=== PATIENT | female | born 1985 | race Caucasian/White ===

== ENCOUNTER 2017-10-19 02:54 | Emergency (ER) | payer OTHER ==
[~2017-10-19] VITALS: Ht 152.4 cm; Wt 48.0 kg
[2017-10-19 03:42] LABS: MICROSCOPIC AUTO
[2017-10-19 03:43] LABS: BASOPHILS # (AUTO) 0.06 x10^3/uL (0-0.1); BASOPHILS % (AUTO) 0 % (0-1); EOSINOPHILS # (AUTO) 0.22 x10^3/uL (0-0.4); EOSINOPHILS % (AUTO) 2 % (1-7); LYMPHOCYTES # (AUTO) 3.58 x10^3/uL (1-3.4); LYMPHOCYTES % (AUTO) 25 % (22-44); MD NO; MEAN CORPUSCULAR HEMOGLOBIN 31.7 pg (27.0-34.8); MEAN CORPUSCULAR HGB CONC 33.9 g/dL (32.4-35.8); MEAN CORPUSCULAR VOLUME 93.3 fL (80-100); MEAN PLATELET VOLUME 7.7 fL (7.4-10.4); MONOCYTES # (AUTO) 0.92 x10^3/uL (0.2-0.8); MONOCYTES % (AUTO) 6 % (2-9); NEUTROPHILS # (AUTO) 9.68 x10^3/uL (1.8-6.8); NEUTROPHILS % (AUTO) 67 % (42-75); PLATELET COUNT 271 x10^3/uL (130-400); RED BLOOD COUNT 4.31 x10^6/uL (3.82-5.3); RED CELL DISTRIBUTION WIDTH 12.4 % (9.6-15.2)
[2017-10-19 03:47] LABS: CULTURE INDICATED? YES
[2017-10-19 03:56] LABS: ALBUMIN 3.8 g/dL (3.4-5.0); ANION GAP 8 mmol/L (5-15); CHLORIDE 107 mmol/L (98-107)
[2017-10-19] MEDS ORDERED: SODIUM CHLORIDE 0.9% 1,000ML IVBOLUS ONE (05:00)
[2017-10-19] MEDS ORDERED: SODIUM CHLORIDE FLUSH 10ML SYR IVF ONE (05:00)
[2017-10-19 05:39] VITALS: BP 123/75
[2017-10-19] MEDS ORDERED: OXYC-302 PO (21:49)
[2017-10-19] MEDS ORDERED: IBUP-1222 PO (21:51)
== END 2017-10-19 05:55 | disposition left against medical advice (07) ==
LOC: ED 05:49
DX: O99.281 Endocrine, nutritional and metabolic diseases complicating pregnancy, first trimester (principal); D72.829 Elevated white blood cell count, unspecified; O26.891 Other specified pregnancy related conditions, first trimester; R10.2 Pelvic and perineal pain; Z3A.00 Weeks of gestation of pregnancy not specified
CPT/HCPCS: 36415; 76830; 80048; 81001; 82040; 84702; 85025; 87086; 99285

== ENCOUNTER 2017-10-19 08:27 | Inpatient (IN) | payer OTHER ==
[~2017-10-19] VITALS: Ht 152.4 cm; Wt 47.0 kg
[2017-10-19 09:36] LABS: AMPHETAMINE SCREEN, URINE Negative (Negative); BARBITURATE SCREEN, URINE Negative (Negative); BENZODIAZEPINE SCREEN, URINE Negative (Negative); CANNABINOID SCREEN, URINE Positive (Negative); COCAINE SCREEN, URINE Negative (Negative); METHADONE SCREEN, URINE Negative (Negative); OPIATE SCREEN, URINE Negative (Negative)
[2017-10-19] MEDS ORDERED: D5%-0.45% NACL 1,000 ML IV ONE (09:59)
[2017-10-19] MEDS ORDERED: MORPHINE SULFATE 4 MG/ML, 1ML IVPush PRN (10:00)
[2017-10-19] MEDS ORDERED: ONDANSETRON 2MG/ML, 2ML IVPush PRN (10:00)
[2017-10-19 10:24] LABS: BASOPHILS # (AUTO) 0.05 x10^3/uL (0-0.1); BASOPHILS % (AUTO) 0 % (0-1); EOSINOPHILS # (AUTO) 0.16 x10^3/uL (0-0.4); EOSINOPHILS % (AUTO) 1 % (1-7); LYMPHOCYTES % (AUTO) 27 % (22-44); MD NO; MEAN CORPUSCULAR HEMOGLOBIN 31.4 pg (27.0-34.8); MEAN CORPUSCULAR HGB CONC 33.9 g/dL (32.4-35.8); MEAN CORPUSCULAR VOLUME 92.7 fL (80-100); MEAN PLATELET VOLUME 7.5 fL (7.4-10.4); MONOCYTES # (AUTO) 0.75 x10^3/uL (0.2-0.8); MONOCYTES % (AUTO) 5 % (2-9); NEUTROPHILS # (AUTO) 9.25 x10^3/uL (1.8-6.8); NEUTROPHILS % (AUTO) 67 % (42-75); PLATELET COUNT 262 x10^3/uL (130-400); RED BLOOD COUNT 4.23 x10^6/uL (3.82-5.3); RED CELL DISTRIBUTION WIDTH 12.7 % (9.6-15.2)
[2017-10-19 12:21] VITALS: BP 111/85
[2017-10-19 13:01] VITALS: BP 111/69
[2017-10-19] MEDS ORDERED: SILVER NITRATE STICK TP ONE (15:11)
[2017-10-19] MEDS ORDERED: BUPIVACAINE/PF-EPI 0.25% 1:200K ONE (15:11)
[2017-10-19] MEDS ORDERED: THROMBIN 5,000 UNIT VIAL TP ONE (15:11)
[2017-10-19] MEDS ORDERED: BALANCED SALT OPHTH IRRIG SOLN 18ML ONE (18:31)
[2017-10-19] MEDS ORDERED: MIDAZOLAM 1 MG/ML, 2ML ONE (18:35)
[2017-10-19] MEDS ORDERED: FENTANYL PF 100 MCG/2ML ONE ×2 (18:36→19:54)
[2017-10-19] MEDS ORDERED: LIDOCAINE GEL 2%, 5ML ONE (18:37)
[2017-10-19] MEDS ORDERED: HYDROmorphone 1 MG/ML, 1ML IV PRN (19:00)
[2017-10-19] MEDS ORDERED: MIDAZOLAM 1 MG/ML, 2ML IV PRN (19:00)
[2017-10-19] MEDS ORDERED: LABETALOL 5MG/ML, 20ML IV PRN (19:00)
[2017-10-19] MEDS ORDERED: MEPERIDINE/PF 25MG/0.5ML IVPush PRN (19:00)
[2017-10-19] MEDS ORDERED: METOCLOPRAMIDE 5 MG/ML, 2ML IV PRN (19:00)
[2017-10-19] MEDS ORDERED: ONDANSETRON 2MG/ML, 2ML IV PRN ×3 (19:00→22:00)
[2017-10-19] MEDS ORDERED: DIAZEPAM 5 MG/ML, 2ML IVPush PRN (19:00)
[2017-10-19] MEDS ORDERED: PROMETHAZINE 25 MG/ML, 1ML IV PRN (19:00)
[2017-10-19] MEDS ORDERED: SCOPOLAMINE PATCH, 1.5MG PATCH.TD72 TD PRN (19:00)
[2017-10-19] MEDS ORDERED: HALOPERIDOL 5 MG/ML IV PRN (19:00)
[2017-10-19] MEDS ORDERED: EPHEDRINE 50 MG/ML, 1ML IM PRN (19:00)
[2017-10-19] MEDS ORDERED: OXYcodone 5 MG/5 ML ORAL.SOL UDC PO PRN ×3 (19:00→22:00)
[2017-10-19] MEDS ORDERED: ALBUTEROL/IPRATROPIUM 2.5MG/0.5MG, 3 ML NPPB PRN (19:00)
[2017-10-19] MEDS ORDERED: BUPIVACAINE/PF-EPI 0.25% 1:200K INFIL ONE (19:16)
[2017-10-19] MEDS ORDERED: GLYCOPYRROLATE 0.2MG/1ML, 5ML ONE (19:36)
[2017-10-19] MEDS ORDERED: ONDANSETRON 2MG/ML, 2ML ONE (19:36)
[2017-10-19] MEDS ORDERED: SUCCINYLCHOLINE 20 MG/ML, 10ML ONE (19:36)
[2017-10-19] MEDS ORDERED: ROCURONIUM 10MG/ML,5ML ONE (19:36)
[2017-10-19] MEDS ORDERED: CEFAZOLIN 1,000 MG ONE (19:36)
[2017-10-19] MEDS ORDERED: PROPOFOL 10 MG/ML, 20ML ONE (19:36)
[2017-10-19] MEDS ORDERED: DEXAMETHASONE 4 MG/ML, 1ML ONE (19:36)
[2017-10-19] MEDS ORDERED: NEOSTIGMINE 1 MG/ML, 10ML ONE (19:36)
[2017-10-19] MEDS ORDERED: OXYcodone 5 MG/5 ML ORAL.SOL UDC ONE (19:54)
[2017-10-19] MEDS: FENTANYL PF 100 MCG/2ML IV PRN ×2 (19:57→20:12)
[2017-10-19] MEDS ORDERED: MEPERIDINE/PF 50 MG/ML ONE (20:28)
[2017-10-19] MEDS ORDERED: OXYC-302 PO (21:49)
[2017-10-19] MEDS ORDERED: IBUP-1222 PO (21:51)
[2017-10-19] MEDS ORDERED: KETOROLAC 30 MG/1 ML IV PRN ×2 (22:00)
[2017-10-19] MEDS ORDERED: PROMETHAZINE 25 MG SUPP PR ONE (22:00)
[2017-10-19] MEDS ORDERED: morphine SULFATE 10 MG/ML, 1ML IV PRN ×2 (22:00)
[2017-10-19] MEDS ORDERED: PROMETHAZINE 12.5 MG SUPP PR ONE ×2 (22:00)
[2017-10-19] MEDS ORDERED: PROMETHAZINE 25 MG/ML, 1ML IV ONE ×2 (22:00)
[2017-10-20 00:38] VITALS: BP 108/67
== END 2017-10-19 23:00 | disposition home or self-care (01) | DRG 777 ==
LOC: ED 09:08 → EDIP 09:59 → 4NOR 12:15
PROVIDERS: ADMIT Obstetrics & Gynecology; ATTEND Obstetrics & Gynecology
PROC: 0UT04ZZ Resection of Right Ovary, Percutaneous Endoscopic Approach (ICD-10-PCS; 2017-10-19)
PROC: 0UT54ZZ Resection of Right Fallopian Tube, Percutaneous Endoscopic Approach (ICD-10-PCS; principal; 2017-10-19 17:00)
DX: O00.101 Right tubal pregnancy without intrauterine pregnancy (principal); D27.0 Benign neoplasm of right ovary; F12.90 Cannabis use, unspecified, uncomplicated
CPT/HCPCS: 36415; 99285; J3490; 80307; 85025; 86850; 86900; 88305; 88307; 96365; J0690; J1100; J1885; J2175; J2250; J2405; J2704; J2710; J3010; J0330